=== PATIENT | male | born 1955 | race Asian ===

== ENCOUNTER → 2016-07-09 | Outpatient (CLI) | payer MEDICAID ==
[~2016-07-09] MED LIST: CARV-39 PO; GADOBUTROL 10 MMOL/10 ML PFS ONE; GADOBUTROL 10 MMOL/10 ML VIAL ONE; LISI5TAB7 PO
== END | disposition home or self-care (01) ==
LOC: CFH 09:06
PROVIDERS: ATTEND Internal Medicine Cardiovascular Disease
DX: I71.2 Thoracic aortic aneurysm, without rupture (principal)
CPT/HCPCS: 71555; A9585; C8911

== ENCOUNTER → 2018-01-21 | Outpatient (CLI) | payer MEDICAID ==
[~2018-01-21] MED LIST changes: -GADOBUTROL 10 MMOL/10 ML PFS ONE; -GADOBUTROL 10 MMOL/10 ML VIAL ONE; +GADOBUTROL 7.5 MMOL/7.5 ML VIAL ONE
== END | disposition home or self-care (01) ==
LOC: CFH 12:40
PROVIDERS: ATTEND Physician Assistant
DX: I71.2 Thoracic aortic aneurysm, without rupture (principal)
CPT/HCPCS: 71555; A9585; C8911